=== PATIENT | male | born 1970 | race African-American/Black ===

== ENCOUNTER → 2024-04-20 | Day surgery (SDC) | payer BC ==
[2024-04-13 15:36] LABS: BASOPHILS # (AUTO) 0.1 (0.0-0.1); BASOPHILS % 0.4 % (0.0-1.0); EOSINOPHILS # (AUTO) 0.3 (0.0-0.4); HEMATOCRIT 30.7 % (38.2-49.6); HEMOGLOBIN 9.1 g/dL (14.0-18.0); LYMPHOCYTES % 22.1 % (18.0-39.1); MEAN CORPUSCULAR HEMOGLOBIN 24.6 pg (28-32); MEAN CORPUSCULAR HGB CONC 29.6 g/dL (31-35); MONOCYTES % 7.1 % (4.4-11.3); NEUTROPHILS # (AUTO) 9.4 (2.1-6.9); NEUTROPHILS % 68.1 % (38.7-80.0); PLATELET COUNT 274 x10e3/uL (140-360); RED CELL DISTRIBUTION WIDTH 22.4 % (11.7-14.4); WHITE BLOOD COUNT 13.75 x10e3/uL (4.8-10.8)
[~2024-04-20] MED LIST: ACETAMINOPHEN 1000 MG/100 ML 100 ML IV ONE; ACETAMINOPHEN 1000 MG/100 ML IV ONE; ADVIL200 M1 PO; BUPIVACAINE 0.5%/EPI 30 ML SDV INJ ONE; FENTANYL CITRATE/PF 100MCG/2 ML INJ ONE; FERROUS FUMARA324 MG PO; HYDROCODON-ACE1 EA12 PO; HYDROCODONE/APAP 7.5MG-325MG 1 EA TAB ONE; HYDROMORPHONE 1MG/1ML INJ ONE; LIDOCAINE HCL 2% LOCAL INJ 5 ML SDV VIAL INJ ONE; MIDAZOLAM HCL 2 MG/2 ML VIAL ONE; MINERAL OIL STERILE 10ML VIAL ONE; MUPIROCIN 2% OINT 22 GM TUBE ONE; ONDANSETRON HCL INJ 2MG/ML 2ML 2 MG/ML VIAL ONE; PHENYLEPHRINE HCL 1% 10 MG/ML VIAL ONE; PROPOFOL IV EMULSION 10 MG/ML 20 ML VIAL ONE; SEVOFLURANE INHAL SOLN 250 ML PEN BTL ONE; TYLENOL EXTRA500 MG PO; ZESTRIL10 MG PO; ZYVOX600 MG PO
[2024-04-20] MEDS: CLINDAMYCIN 600MG / 50ML 50 ML IV ONE (07:13)
[2024-04-20] MEDS: LACTATED RINGER'S 1,000 ML ONE (07:13)
[2024-04-20] MEDS: HYDROMORPHONE 1MG/1ML INJ ONE (12:34)
[2024-04-20] MEDS: HYDROCODONE/APAP 7.5MG-325MG 1 EA TAB PO ONE (14:25)
[2024-04-20 15:15] VITALS: BP 120/71; PULSE 90; RESP 18; O2SAT 97
== END | disposition home or self-care (01) ==
LOC: OR 06:20
PROVIDERS: ATTEND Plastic Surgery
DX: L73.2 Hidradenitis suppurativa (principal); D64.9 Anemia, unspecified; I10 Essential (primary) hypertension; I49.3 Ventricular premature depolarization; I45.10 Unspecified right bundle-branch block; Z88.0 Allergy status to penicillin; Z01.810 Encounter for preprocedural cardiovascular examination; Z01.812 Encounter for preprocedural laboratory examination; Z01.818 Encounter for other preprocedural examination; Z79.1 Long term (current) use of non-steroidal anti-inflammatories (NSAID); Z79.899 Other long term (current) drug therapy
CPT/HCPCS: 11402; 11451; 15100; 15101 ×7; 36415; 71046; 85025; 87071; 87075; 87186; 87205; 88304; 93005; 99252; J0131; J1170; J2001; J2250; J2371; J2405; J2704; J3010; J7121

== ENCOUNTER → 2024-04-24 | Outpatient (REF) | payer BC ==
[~2024-04-24] MED LIST changes: -ACETAMINOPHEN 1000 MG/100 ML 100 ML IV ONE; -ACETAMINOPHEN 1000 MG/100 ML IV ONE; -BUPIVACAINE 0.5%/EPI 30 ML SDV INJ ONE; -FENTANYL CITRATE/PF 100MCG/2 ML INJ ONE; -HYDROCODONE/APAP 7.5MG-325MG 1 EA TAB ONE; -HYDROMORPHONE 1MG/1ML INJ ONE; -LIDOCAINE HCL 2% LOCAL INJ 5 ML SDV VIAL INJ ONE; -MIDAZOLAM HCL 2 MG/2 ML VIAL ONE; -MINERAL OIL STERILE 10ML VIAL ONE; -MUPIROCIN 2% OINT 22 GM TUBE ONE; -ONDANSETRON HCL INJ 2MG/ML 2ML 2 MG/ML VIAL ONE; -PHENYLEPHRINE HCL 1% 10 MG/ML VIAL ONE; -PROPOFOL IV EMULSION 10 MG/ML 20 ML VIAL ONE; -SEVOFLURANE INHAL SOLN 250 ML PEN BTL ONE
== END ==
LOC: WCC 13:05
PROVIDERS: ATTEND Plastic Surgery
DX: T81.89XD Other complications of procedures, not elsewhere classified, subsequent encounter (principal); S31.109D Unspecified open wound of abdominal wall, unspecified quadrant without penetration into peritoneal cavity, subsequent encounter

== ENCOUNTER → 2024-04-28 | Outpatient (REF) | payer BC | LOC: WCC 10:26 | PROVIDERS: ATTEND Plastic Surgery | DX: T81.89XD Other complications of procedures, not elsewhere classified, subsequent encounter (principal); S31.109D Unspecified open wound of abdominal wall, unspecified quadrant without penetration into peritoneal cavity, subsequent encounter ==

== ENCOUNTER → 2024-05-05 | Outpatient (REF) | payer BC | LOC: WCC 10:04 | PROVIDERS: ATTEND Plastic Surgery | DX: T81.89XD Other complications of procedures, not elsewhere classified, subsequent encounter (principal) ==

== ENCOUNTER → 2024-05-08 | Outpatient (REF) | payer BC | LOC: WCC 10:00 | PROVIDERS: ATTEND Plastic Surgery | DX: T81.89XD Other complications of procedures, not elsewhere classified, subsequent encounter (principal) ==

== ENCOUNTER → 2024-05-22 | Outpatient (REF) | payer BC | LOC: WCC 08:50 | PROVIDERS: ATTEND Plastic Surgery | DX: T81.89XD Other complications of procedures, not elsewhere classified, subsequent encounter (principal) ==

== ENCOUNTER 2024-06-02 15:51 | Emergency (ER) | payer BC ==
[~2024-06-02] VITALS: Ht 177.8 cm; Wt 97.1 kg
[2024-06-02] MEDS ORDERED: KETOROLAC TROMETHAMINE 30 MG/ML VIAL IV STA (17:14)
[2024-06-02 17:25] LABS: ALBUMIN 2.4 g/dL (3.5-5.0); ALBUMIN/GLOBULIN RATIO 0.3 (0.8-2.0); BILIRUBIN,TOTAL 0.3 mg/dL (0.2-1.2); CALCIUM 8.6 mg/dL (8.4-10.2); CREATININE, SERUM 1.76 mg/dL (0.72-1.25); TOTAL PROTEIN 9.7 g/dL (6.5-8.1)
[2024-06-02] MEDS: KETOROLAC TROMETHAMINE 30 MG/ML VIAL IV STA (17:28)
[2024-06-02 17:34] LABS: BASOPHILS # (AUTO) 0.1 (0.0-0.1); BASOPHILS % 0.4 % (0.0-1.0); EOSINOPHILS # (AUTO) 0.1 (0.0-0.4); EOSINOPHILS % 0.8 % (0.0-6.0); HEMATOCRIT 25.4 % (38.2-49.6); HEMOGLOBIN 7.3 g/dL (14.0-18.0); LYMPHOCYTES # (AUTO) 3.3 (1.0-3.2); LYMPHOCYTES % 21.1 % (18.0-39.1); MEAN CORPUSCULAR HEMOGLOBIN 23.2 pg (28-32); MEAN CORPUSCULAR HGB CONC 28.7 g/dL (31-35); MEAN CORPUSCULAR VOLUME 80.6 fL (81-99); MONOCYTES % 6.2 % (4.4-11.3); NEUTROPHILS # (AUTO) 11.3 (2.1-6.9); NEUTROPHILS % 71.1 % (38.7-80.0); PLATELET COUNT 398 x10e3/uL (140-360); RED BLOOD COUNT 3.15 x10e6/uL (4.3-5.7); RED CELL DISTRIBUTION WIDTH 19.3 % (11.7-14.4)
[2024-06-02] MEDS: CLINDAMYCIN 600MG / 50ML 50 ML IV ONE (17:51)
[2024-06-02] MEDS: SODIUM CHLORIDE 0.9% 1000ML 1,000 ML IV ONE (17:51)
[2024-06-02] MEDS ORDERED: IOPAMIDOL 370 MG/ML 100 ML INFUS..BTL INJ ONE (18:12)
[2024-06-02] MEDS: ACETAMINOPHEN 325 MG TAB PO ONE (19:01)
[2024-06-02] MEDS: CEFEPIME 2 GM in SODIUM CHLORIDE 0.9% 100 ML IV ONE (19:41)
[2024-06-02] MEDS: Vancomycin IV 1 GM in SODIUM CHLORIDE 0.9% 250ML 250 ML IV ONE (21:04)
[2024-06-02 22:40] VITALS: PULSE 92; RESP 16; TEMP 98.2; O2SAT 99
== END 2024-06-02 22:50 | disposition other institution (70) ==
LOC: ER 16:25
DX: L02.215 Cutaneous abscess of perineum (principal); N49.3 Fournier gangrene; L73.2 Hidradenitis suppurativa; L02.31 Cutaneous abscess of buttock; L03.317 Cellulitis of buttock; I10 Essential (primary) hypertension; D64.9 Anemia, unspecified; R16.1 Splenomegaly, not elsewhere classified
CPT/HCPCS: 36415; 74177; 80053; 83605; 85025; 87040; 99284; J0692; J1885; J3370; J7030; J7050 ×2; Q9967

== ENCOUNTER → 2024-06-12 | Outpatient (REF) | payer BC | LOC: WCC 08:46 | PROVIDERS: ATTEND Plastic Surgery | DX: T81.89XD Other complications of procedures, not elsewhere classified, subsequent encounter (principal) ==

== ENCOUNTER → 2025-03-12 | Outpatient (REF) | payer BC | LOC: WCC 09:40 | PROVIDERS: ATTEND Plastic Surgery | DX: S31.809A Unspecified open wound of unspecified buttock, initial encounter (principal); S31.109A Unspecified open wound of abdominal wall, unspecified quadrant without penetration into peritoneal cavity, initial encounter; S71.102A Unspecified open wound, left thigh, initial encounter; S71.101A Unspecified open wound, right thigh, initial encounter ==

== ENCOUNTER → 2025-04-18 | Outpatient (REF) | payer BC ==
[~2025-04-18] MED LIST changes: +ACETAMINOPHEN-1 EAC4 PO; +BACTRIM DS TAB1 EACH PO; +CLINDAMYCIN 600MG / 50ML 50 ML IV ONE; +DOXYCYCLINE HY100 MG PO; +FENTANYL CITRATE/PF 100MCG/2 ML INJ ONE; +FINASTERIDE5 MG PO; +HYDROMORPHONE 0.2MG/ML-SOD CHL 30ML PCA SYRINGE IV ONE; +HYZAAR 100-12.1 EACH PO; +LOSARTAN POTASS25 MG PO; +SODIUM CHLORIDE 0.9% 1000ML 1,000 ML ONE; +[UNRECOGNIZED DRUG - OTHER] TOP
[2025-04-18 12:35] LABS: BASOPHILS % 0.4 % (0.0-1.0); EOSINOPHILS % 0.3 % (0.0-6.0); LYMPHOCYTES % 10.7 % (18.0-39.1); MONOCYTES % 5.1 % (4.4-11.3); NEUTROPHILS % 82.9 % (38.7-80.0); RED CELL DISTRIBUTION WIDTH 22.4 % (11.7-14.4)
[2025-04-18 12:55] LABS: EST GLOMERULAR FILTRATION RATE 54.0 ML/MIN (>=60)
== END ==
LOC: RAD 09:00 → EDSTATUS 04-20 12:30
PROVIDERS: ATTEND Surgery
DX: Z01.818 Encounter for other preprocedural examination (principal); L73.2 Hidradenitis suppurativa; Z53.8 Procedure and treatment not carried out for other reasons
CPT/HCPCS: 36415; 80048; 85025; 93005; J7030

== ENCOUNTER 2025-05-14 17:12 | Inpatient (IN) | payer BC ==
[~2025-05-14] VITALS: Ht 177.8 cm; Wt 83.1 kg
[~2025-05-14 17:12] MED LIST changes: -BACTRIM DS TAB1 EACH PO; -CLINDAMYCIN 600MG / 50ML 50 ML IV ONE; -FENTANYL CITRATE/PF 100MCG/2 ML INJ ONE; -FINASTERIDE5 MG PO; -HYDROMORPHONE 0.2MG/ML-SOD CHL 30ML PCA SYRINGE IV ONE; -SODIUM CHLORIDE 0.9% 1000ML 1,000 ML ONE; -[UNRECOGNIZED DRUG - OTHER] TOP
[2025-05-14 17:26] VITALS: TEMP 99.6
[2025-05-14 18:09] LABS: BASOPHILS % 0.4 % (0.0-1.0); EOSINOPHILS % 0.7 % (0.0-6.0); LYMPHOCYTES % 17.4 % (18.0-39.1); MONOCYTES % 8.1 % (4.4-11.3); NEUTROPHILS % 73.1 % (38.7-80.0); RED CELL DISTRIBUTION WIDTH 17.1 % (11.7-14.4)
[2025-05-14 18:34] LABS: EST GLOMERULAR FILTRATION RATE 60.0 ML/MIN (>=60)
[2025-05-14] MEDS: Morphine 4mg INJECTION 4 MG/ML INJ IV PRN (18:36)
[2025-05-14] MEDS: Vancomycin IV 1 GM in SODIUM CHLORIDE 0.9% 250ML 250 ML IV SCH (18:37)
[2025-05-14] MEDS: SODIUM CHLORIDE 0.9% 1000ML 1,000 ML IV STA (18:37)
[2025-05-14] MEDS ORDERED: Morphine 4mg INJECTION 4 MG/ML INJ IV PRN (20:00)
[2025-05-14 21:00] VITALS: PULSE 109; RESP 17
[2025-05-14] MEDS ORDERED: IOPAMIDOL 370 MG/ML 100 ML INFUS..BTL INJ ONE (21:21)
[2025-05-14] MEDS: SODIUM CHLORIDE 0.9% 1000ML 1,000 ML IV SCH (22:32)
[2025-05-14 22:58] VITALS: BP 118/74; PULSE 113; RESP 20; TEMP 98.1; O2SAT 98
[2025-05-14 23:03] VITALS: BP 118/74; PULSE 113; RESP 20; TEMP 98.1; O2SAT 98
[2025-05-15] VITALS (8 sets, daily range): BP systolic 105–158; BP diastolic 61–82; PULSE 74–122; RESP 16–18; TEMP 97.7–99.2; O2SAT 91–100
[2025-05-15 05:46] LABS: BASOPHILS % 0.5 % (0.0-1.0); EOSINOPHILS % 1.6 % (0.0-6.0); LYMPHOCYTES % 16.4 % (18.0-39.1); MONOCYTES % 9.1 % (4.4-11.3); NEUTROPHILS % 72.1 % (38.7-80.0); RED CELL DISTRIBUTION WIDTH 17.4 % (11.7-14.4)
[2025-05-15 06:30] LABS: EST GLOMERULAR FILTRATION RATE 76.0 ML/MIN (>=60)
[2025-05-15 18:58] LABS: % IRON SATURATION 7 % (15-50)
[2025-05-16] VITALS (8 sets, daily range): BP systolic 102–122; BP diastolic 57–74; PULSE 78–120; RESP 18–20; TEMP 97.9–99.7; O2SAT 96–100
[2025-05-16 06:18] LABS: BASOPHILS % 0.4 % (0.0-1.0); EOSINOPHILS % 0.8 % (0.0-6.0); LYMPHOCYTES % 17.3 % (18.0-39.1); MONOCYTES % 10.8 % (4.4-11.3); NEUTROPHILS % 70.3 % (38.7-80.0); RED CELL DISTRIBUTION WIDTH 17.4 % (11.7-14.4)
[2025-05-16 06:49] LABS: EST GLOMERULAR FILTRATION RATE 69.0 ML/MIN (>=60)
[2025-05-16] MEDS: LOSARTAN POTASSIUM 100 MG TAB PO SCH (09:05)
[2025-05-16] MEDS: HYDROCHLOROTHIAZIDE 25 MG TAB PO SCH (09:06)
[2025-05-16] MEDS: FINASTERIDE 5 MG TAB PO SCH (09:06)
[2025-05-16] MEDS: SPIRONOLACTONE 25 MG TAB PO SCH (09:06)
[2025-05-16] MEDS: Vancomycin IV 1 GM in SODIUM CHLORIDE 0.9% 250ML 250 ML IV SCH (17:23)
[2025-05-16] MEDS: ONDANSETRON HCL INJ 2MG/ML 2ML 2 MG/ML VIAL IV PRN (21:48)
[2025-05-17] MEDS: SODIUM FERRIC GLUCONATE COMPLX 125 MG in SODIUM CHLORIDE 0.9% 100 ML IV SCH (11:49)
[2025-05-17] MEDS: SODIUM CHLORIDE 0.9% 250ML 250 ML IV ONE (11:50)
[2025-05-17 13:00] VITALS: BP 99/60; PULSE 98; RESP 18; TEMP 98.1; O2SAT 97
[2025-05-17] MEDS: MUPIROCIN 2% OINT 22 GM TUBE TOP SCH (17:15)
[2025-05-17] MEDS: LEVOFLOXACIN 500 MG TAB PO SCH (17:24)
[2025-05-17 17:47] VITALS: BP 118/65; PULSE 101; RESP 18; TEMP 98.3; O2SAT 96
[2025-05-17 19:04] VITALS: BP 117/58; PULSE 103; RESP 18; TEMP 98.1; O2SAT 97
[2025-05-17 20:15] VITALS: BP 106/57; PULSE 108; RESP 18; TEMP 98.8; O2SAT 95
[2025-05-17] MEDS ORDERED: PIPERACILLIN/TAZOBACTAM 4.5 GM in SODIUM CHLORIDE 0.9% 100 ML IV SCH (22:00)
[2025-05-18] VITALS (7 sets, daily range): BP systolic 100–125; BP diastolic 62–66; PULSE 75–111; RESP 17–20; TEMP 97.6–98.4; O2SAT 97–100
[2025-05-18] MEDS: SODIUM CHLORIDE 0.9% 250ML 250 ML IV ONE ×2 (07:23→14:20)
[2025-05-18] MEDS: SODIUM CHLORIDE 0.9% 250ML 250 ML ONE (09:17)
[2025-05-18] MEDS: MINERAL OIL/PETROLAT/GLYCERI 6OZ BTL TOP SCH (09:50)
[2025-05-18] MEDS ORDERED: PROPOFOL IV EMULSION 10 MG/ML 20 ML VIAL ONE (10:54)
[2025-05-18] MEDS ORDERED: LIDOCAINE HCL 2% LOCAL INJ 5 ML SDV VIAL INJ ONE (10:58)
[2025-05-18] MEDS ORDERED: HYDROMORPHONE 2MG/ML ONE (11:25)
[2025-05-18] MEDS ORDERED: SODIUM CHLORIDE 0.9% INJ 10 ML VIAL ONE (11:25)
[2025-05-18] MEDS ORDERED: MIDAZOLAM HCL 2 MG/2 ML VIAL ONE (11:29)
[2025-05-18] MEDS ORDERED: ROCURONIUM BROMIDE 1 ML IV ONE (11:32)
[2025-05-18 12:25] LABS: BASOPHILS % 0.4 % (0.0-1.0); EOSINOPHILS % 1.3 % (0.0-6.0); LYMPHOCYTES % 17.8 % (18.0-39.1); MONOCYTES % 8.2 % (4.4-11.3); NEUTROPHILS % 72.1 % (38.7-80.0); RED CELL DISTRIBUTION WIDTH 16.7 % (11.7-14.4)
[2025-05-18] MEDS ORDERED: SEVOFLURANE INHAL SOLN 250 ML PEN BTL ONE (13:24)
[2025-05-18] MEDS ORDERED: SUGAMMADEX SODIUM 200 MG/2 ML VIAL IV ONE (13:24)
[2025-05-18] MEDS: HYDROMORPHONE 1MG/1ML INJ ONE (14:31)
[2025-05-18] MEDS: ASCORBIC ACID 500 MG TAB PO SCH (17:29)
[2025-05-18] MEDS: ZINC SULFATE 50 MG CAP PO SCH (17:29)
[2025-05-18] MEDS: CALCIUM CARBONATE/VITAMIN D3 500 MG TAB PO SCH (17:29)
[2025-05-18] MEDS: MULTIVITAMINS/MINERALS TAB PO SCH (17:30)
[2025-05-18] MEDS: MELATONIN 3 MG TAB PO SCH (20:32)
[2025-05-18] MEDS: HYDROMORPHONE 1MG/1ML INJ IV ONE (20:32)
[2025-05-19] VITALS (9 sets, daily range): BP systolic 97–126; BP diastolic 60–65; PULSE 89–105; RESP 17–20; TEMP 98–98.5; O2SAT 97–100
[2025-05-19 07:42] LABS: BASOPHILS % 0.4 % (0.0-1.0); EOSINOPHILS % 3.4 % (0.0-6.0); LYMPHOCYTES % 13.9 % (18.0-39.1); MONOCYTES % 9.0 % (4.4-11.3); NEUTROPHILS % 72.7 % (38.7-80.0); RED CELL DISTRIBUTION WIDTH 16.8 % (11.7-14.4)
[2025-05-19 08:03] LABS: EST GLOMERULAR FILTRATION RATE 83.0 ML/MIN (>=60)
[2025-05-20] VITALS (9 sets, daily range): BP systolic 108–123; BP diastolic 58–69; PULSE 87–109; RESP 18–19; TEMP 97.6–98.9; O2SAT 96–100
[2025-05-21] VITALS (7 sets, daily range): BP systolic 106–123; BP diastolic 61–68; PULSE 89–105; RESP 18; TEMP 97.7–98.6; O2SAT 97–100
[2025-05-21] MEDS: Morphine 2mg Syringe 2 MG/ML SYR IV PRN (18:33)
[2025-05-22] VITALS: BP 114/68; PULSE 110; RESP 18; TEMP 98.9; O2SAT 100
[2025-05-22 07:47] VITALS: PULSE 96; RESP 18; O2SAT 98
[2025-05-22 08:39] VITALS: BP 116/72; PULSE 94; RESP 19; TEMP 97; O2SAT 98
[2025-05-22 10:31] VITALS: BP 116/72; PULSE 94; RESP 19; TEMP 97; O2SAT 98
[2025-05-22 13:05] VITALS: PULSE 95; RESP 18; O2SAT 97
[2025-05-22 13:30] VITALS: BP 121/74; PULSE 96; RESP 18; TEMP 97.4; O2SAT 97
[2025-05-22] MEDS ORDERED: BACTRIM DS TAB1 EACH PO (14:50)
[2025-05-22] MEDS ORDERED: FINASTERIDE5 MG PO (14:51)
[2025-05-22] MEDS ORDERED: [UNRECOGNIZED DRUG - OTHER] TOP (14:51)
[2025-05-22] MEDS: HYDROCODONE/APAP 10MG-325MG TAB PO ONE (16:37)
[2025-05-22] MEDS ORDERED: ACETAMINOPHEN-1 EAC4 PO (18:29)
== END 2025-05-22 18:29 | disposition home health service (06) | DRG 856 ==
LOC: ER 17:26 → ERHOLD 19:58 → MED/SURG2 21:40
PROVIDERS: ADMIT Internal Medicine; ATTEND Internal Medicine
PROC: 05HY33Z Insertion of Infusion Device into Upper Vein, Percutaneous Approach (ICD-10-PCS; 2025-05-17)
PROC: 3E03329 Introduction of Other Anti-infective into Peripheral Vein, Percutaneous Approach (ICD-10-PCS; 2025-05-17)
PROC: 0HRAX74 Replacement of Inguinal Skin with Autologous Tissue Substitute, Partial Thickness, External Approach (ICD-10-PCS; 2025-05-18)
PROC: 0KBT0ZZ Excision of Left Lower Leg Muscle, Open Approach (ICD-10-PCS; 2025-05-18)
PROC: 30233N1 Transfusion of Nonautologous Red Blood Cells into Peripheral Vein, Percutaneous Approach (ICD-10-PCS; 2025-05-18)
PROC: 0HR8X74 Replacement of Buttock Skin with Autologous Tissue Substitute, Partial Thickness, External Approach (ICD-10-PCS; principal; 2025-05-18 12:10)
DX: T81.49XA Infection following a procedure, other surgical site, initial encounter (principal); A41.9 Sepsis, unspecified organism; L02.31 Cutaneous abscess of buttock; L03.317 Cellulitis of buttock; T81.31XA Disruption of external operation (surgical) wound, not elsewhere classified, initial encounter; T81.44XA Sepsis following a procedure, initial encounter; I10 Essential (primary) hypertension; L73.2 Hidradenitis suppurativa; N50.89 Other specified disorders of the male genital organs; L98.419 Non-pressure chronic ulcer of buttock with unspecified severity; E88.09 Other disorders of plasma-protein metabolism, not elsewhere classified; D50.9 Iron deficiency anemia, unspecified; B96.1 Klebsiella pneumoniae [K. pneumoniae] as the cause of diseases classified elsewhere; B96.83 Acinetobacter baumannii as the cause of diseases classified elsewhere; Z88.0 Allergy status to penicillin; Z79.891 Long term (current) use of opiate analgesic; Z90.49 Acquired absence of other specified parts of digestive tract; Z93.3 Colostomy status
CPT/HCPCS: 36415; 36569; 71045; 74177; 80048; 80053; 80202; 82550; 83540; 83735; 84466; 84484; 85014; 85018; 85025; 86850; 86900; 86920; 87071; 87075; 87186; 87205; 94799; 97606; 99252; 99285; J1171; J2003; J2250; J2270; J2405; J2916; J3373; J7030; J7050; P9016; Q9967

== ENCOUNTER → 2025-05-25 | Outpatient (REF) | payer BC ==
[~2025-05-25] MED LIST changes: +BACTRIM DS TAB1 EACH PO; +FINASTERIDE5 MG PO; +[UNRECOGNIZED DRUG - OTHER] TOP
== END ==
LOC: WCC 13:31
PROVIDERS: ATTEND Plastic Surgery
DX: T81.89XD Other complications of procedures, not elsewhere classified, subsequent encounter (principal)

== ENCOUNTER → 2025-05-28 | Outpatient (REF) | payer BC | LOC: WCC 11:17 | PROVIDERS: ATTEND Plastic Surgery | DX: T81.89XD Other complications of procedures, not elsewhere classified, subsequent encounter (principal) ==

== ENCOUNTER → 2025-06-01 | Outpatient (REF) | payer BC | LOC: WCC 12:39 | PROVIDERS: ATTEND Plastic Surgery | DX: T81.89XA Other complications of procedures, not elsewhere classified, initial encounter (principal) ==

== ENCOUNTER → 2025-06-04 | Outpatient (REF) | payer BC | LOC: WCC 10:38 | PROVIDERS: ATTEND Plastic Surgery | DX: T81.89XD Other complications of procedures, not elsewhere classified, subsequent encounter (principal) ==

== ENCOUNTER → 2025-06-08 | Outpatient (REF) | payer BC | LOC: WCC 12:16 | PROVIDERS: ATTEND Plastic Surgery | DX: T81.89XD Other complications of procedures, not elsewhere classified, subsequent encounter (principal) ==